=== PATIENT | male | born 1935 | race Caucasian/White ===

== ENCOUNTER → 2017-11-14 08:01 | Outpatient (CLI) | payer MEDICARE, OTHER, SELFPAY ==
--- NOTE | 2017-11-14 | CA_ITS ---
PROCEDURE: 2-D M-mode and color Doppler study INDICATIONS FOR THE TEST: Chest pain COPD Heart Murmur+ Tobacco Smoking Palpitations Fatigue Syncope Edema Hypertension Diabetes Mellitus Rheumatic Fever SOB PRESTON+Obesity Hyperlipidemia Family History HD Additional History PATIENT INFORMATION HEIGHT: 64 WEIGHT: 140 GENDER: Male B/P: 151/95 2-D/M-MODE INTERPRETATION: 2-D MEASUREMENTS OBSERVED VALUES IN CMS Right Ventricular Dimension (RVDd) 1.7 Interventricular Septum (Thickness)(IVsd) 0.9 Left Ventricular Internal Dimensions(LVIDd) 4.4 Left Ventricular Posterior Wall (Thickness)(LVPWd) 0.9 Aortic Root 2.4 Aortic Cusp Separation 1.5 Left Atrial Dimensions (LAD) 3.6 2D 1. Left atrium is mildly enlarged is normal size, there is no concentric left ventricular hypertrophy, visually estimated ejection fraction 55% with no signal wall motion abnormality. 2. The right atrium and right ventricle are normal size and contractility. 3. The aortic valve is thickened and calcified, possibility of the bicuspid aortic valve. 4. The mitral and tricuspid valve leaflets are grossly normal. 5. The pulmonic valve is poorly visualized. 6. No significant pericardial effusion noted. DOPPLER INTERROGATION: Doppler interrogation of the aortic, mitral and tricuspid valvular presence of mild mitral and tricuspid regurgitation, tricuspid regurgitant jet velocity is insufficient for calculation of the right ventricular systolic pressure, the aortic outflow velocities increased to 2.6 m/s, resulting in a mean gradient across valve of 14 mmHg, this represents mild aortic stenosis, there is mild aortic insufficiency present. Grade 1 diastolic dysfunction seen with tissue Doppler evidence of raised left atrial pressure. CONCLUSION: 1. Mildly enlarged left atrium, normal left ventricular size, there is no concentric left ventricular hypertrophy, visually estimated ejection fraction of 55% with no obvious regional wall motion abnormality. Grade 1 diastolic dysfunction seen with tissue Doppler evidence of raised left atrial pressure. 2. Thickened and calcified aortic valve with mean gradient across valve of 14 mmHg, this represents mild aortic stenosis, possibility of the bicuspid aortic valve , there is mild aortic insufficiency present. 3. Mild mitral and tricuspid regurgitation 4. No significant pericardial effusion noted.
== END ==
PROVIDERS: Family Provider Family Medicine; PCP Family Medicine; Visit Provider Family Medicine
DX: R01.1 Cardiac murmur, unspecified (principal); R53.83 Other fatigue
CPT/HCPCS: 93306

== ENCOUNTER → 2019-06-24 14:36 | Outpatient (CLI) | payer MEDICARE, OTHER, SELFPAY ==
[2019-06-24 15:19] LABS: Basophils # 0.1 K/mm3 (0-0.2); Eosinophils # 0.2 K/mm3 (0.0-0.4); Eosinophils % 3.4 % (0.1-12.0); Hematocrit 42.8 % (42.0-52.0); Hemoglobin 13.2 g/dL (14.1-18.0); Lymphocytes # 1.1 K/mm3 (0.7-4.5); Lymphocytes % 18.8 % (10-50); Mean Corpuscular HGB Conc 30.9 g/dL (31.8-35.4); Mean Corpuscular Hemoglobin 30.9 pg (27.0-31.2); Mean Corpuscular Volume 99.9 fl (80-94); Mean Platelet Volume 10.5 fl (7.4-10.4); Monocytes # 0.4 K/mm3 (0.1-1.0); Monocytes % 5.9 % (1.7-9.3); Neutrophils # 4.2 K/mm3 (1.8-7.8); Neutrophils % 70.9 % (37.0-80.0); Platelet Count 205 K/mm3 (142-424); Red Blood Count 4.28 M/mm3 (4.60-6.20); Red Cell Distribution Width 14.9 % (11.5-17.5)
[2019-06-24 17:15] LABS: Alanine Aminotransferase 95 U/L (21-72); Albumin Level 2.9 g/dL (3.4-5.0); Alkaline Phosphatase 624 U/L (46-116); Anion Gap 14.2 mEq/L (5-15); Bilirubin,Direct 8.4 mg/dL (0.0-0.2); Bilirubin,Indirect 0.8 mg/dL (0.0-0.9); Bilirubin,Total 9.2 mg/dL (0.2-1.0); Blood Urea Nitrogen 20 mg/dL (7-18); Carbon Dioxide 28 mmol/L (21.0-32.0); Chloride 107 mmol/L (98-107); Creatinine,Serum 1.28 mg/dL (0.70-1.30); Estimated Glomerular Filt Rate 54 ml/min (>60); GFR (African American) 65 ML/MIN (>60); Glucose 151 mg/dL (74-106); Sodium 145 mmol/L (137-145); Total Protein,Serum 5.7 g/dL (6.4-8.2)
[2019-06-24 17:17] LABS: Potassium 4.2 mmoL/L (3.5-5.1)
[2019-06-24 17:18] LABS: Aspartate Amino Transferase 84 U/L (15-37)
[2019-06-26 08:39] LABS: Hep A Ab, IgM Negative (Negative); Hepatitis B Core Antibody IgM Negative (Negative); Hepatitis B Surface Antigen Negative (Negative)
[2019-06-26 19:09] LABS: Hepatitis C Antibody <0.1 s/co ratio (0.0-0.9)
== END ==
PROVIDERS: Visit Provider Family Medicine
DX: R17 Unspecified jaundice (principal)
CPT/HCPCS: 36415; 80048; 80074; 80076; 85025

== ENCOUNTER → 2019-06-25 10:25 | Outpatient (CLI) | payer MEDICARE, OTHER, SELFPAY ==
--- NOTE | 2019-06-25 10:32 | CT_ITS ---
PROCEDURE: CT ABDOMEN PELVIS WO/W CON CLINICAL INDICATION: JAUNDICE Painless jaundice COMPARISON: No exams were available for comparison TECHNIQUE: IV Contrast: 75ML OPTIRAY 350 Oral Contrast 20ml Gastroview Axial images obtained with sagittal and coronal reformats. All CT scans at the facility use one or more dose reduction, viz: automated exposure control, ma/kV adjustment per patient size (including targeted exams where dose is matched to indication, i.e. head), or iterative reconstruction technique. FINDINGS: LOWER THORAX: There are trace bilateral effusions with mild right basilar. The atelectasis. Coronary artery calcifications and aortic valve calcifications are noted. ABDOMEN & PELVIS: There is. Moderate to severe intra and extrahepatic biliary ductal dilatation. Common bile duct measures up to 16 mm in diameter. Pancreatic duct is dilated with a double duct sign. Soft tissue mass is present involving the pancreatic head measuring 5.5 x 4.5 cm. There may be invasion of the medial wall of the descending duodenum. Diffuse soft tissue density is present surrounding the celiac and superior mesenteric artery roots extending down into the mesenteric axis with nodularity of the mesentery is consistent with diffuse adenopathy or direct spread. No focal liver lesion is evident. Small gallstone is present. Gallbladder is slightly distended at 8.8 by 3.4 cm. The spleen has an unremarkable appearance as does the adrenal glands. There is a left renal cyst at 7.2 x 4.8 cm. No evidence of diverticulitis or appendicitis. There is mild prominence of the small bowel loops in the mid abdominal region but no definite obstruction. There is a small amount fluid in the pelvis. The prostate is enlarged at 5.6 x 4.1 cm. There is mild thickening of the urinary bladder wall nonspecific. There is a hyperdense subcutaneous nodule in the left inguinal region measuring 1.5 cm. No acute bony findings are evident. IMPRESSION: There is a 5.5 x 4.5 cm mass at the head of the pancreas and may be either coming from the ampullary region or the head of the pancreas with ductal dilatation of the pancreatic duct and common bile duct (double duct sign)consistent with neoplasm. There may also be invasion of the medial aspect of the descending portion of the duodenum. 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 Dr. Claros was notified of these findings by telephone 06/25/2019 at 2 p.m. Dictated by: Dakota Montes MD 06/25/2019 14:31 Electronically signed by Dakota Montse MD in [place] 06/25/2019 14:31
== END ==
PROVIDERS: PCP Family Medicine; Visit Provider Family Medicine
DX: R17 Unspecified jaundice (principal)
CPT/HCPCS: 74178; Q9967